=== PATIENT | female | born 1975 | race Caucasian/White ===

== ENCOUNTER 2023-01-03 10:39 | Day surgery (SDC) | payer OTHER ==
[2023-01-03 11:04] VITALS: BMI 21.2
[2023-01-03 11:50] VITALS: TEMP 98
[2023-01-03 12:40] VITALS: BP 124/71; PULSE 59; RESP 13
== END 2023-01-03 12:40 | disposition home or self-care (01) ==
LOC: JASU-ENDO 10:39
PROVIDERS: ATTEND Internal Medicine Gastroenterology
PROC: 0DB98ZX Excision of Duodenum, Via Natural or Artificial Opening Endoscopic, Diagnostic (ICD-10-PCS; 2023-01-03)
PROC: 0DB78ZX Excision of Stomach, Pylorus, Via Natural or Artificial Opening Endoscopic, Diagnostic (ICD-10-PCS; 2023-01-03)
PROC: 0DB68ZX Excision of Stomach, Via Natural or Artificial Opening Endoscopic, Diagnostic (ICD-10-PCS; 2023-01-03)
PROC: 0DBL8ZX Excision of Transverse Colon, Via Natural or Artificial Opening Endoscopic, Diagnostic (ICD-10-PCS; principal; 2023-01-03 11:00)
DX: Z12.11 Encounter for screening for malignant neoplasm of colon (principal); K63.5 Polyp of colon; K57.30 Diverticulosis of large intestine without perforation or abscess without bleeding; K29.70 Gastritis, unspecified, without bleeding; B96.81 Helicobacter pylori [H. pylori] as the cause of diseases classified elsewhere; K30 Functional dyspepsia
CPT/HCPCS: 81025; 88305-TC; 88342-TC